=== PATIENT | male | born 1990 | race Caucasian/White ===

== ENCOUNTER 2021-04-17 23:14 | Observation (INO) ==
[2021-04-17] MEDS ORDERED: SODIUM CHLORIDE 0.9% 1,000 ML IV STA (23:36)
[2021-04-17 23:50] LABS: Basophils % 0.4 % (0.0-0.8); Eosinophils # 0.1 10*3/uL (0.0-0.87); Hematocrit 43.9 VOL% (42.0-52.0); Hemoglobin 14.9 GM/DL (14.0-18.0); Immature Granulocytes % 0.7 %; Immature Granulocytes Absolute 0.06 #; Lymphocytes # 3.2 10*3/uL (1.4-4.0); Lymphocytes % 40.1 % (21.2-54.2); Mean Corpuscular HGB Conc 33.9 GM/DL (32-36); Mean Corpuscular Volume 86.8 FL (87-102); Monocytes % 8.9 % (1.7-12.7); Neutrophils % 48.9 % (38.7-73.9); Platelet Count 206 T/CUMM (130-400); Red Blood Count 5.06 MC/CUMM (3.8-5.5); Red Cell Distribution Width 12.2 % (9.3-17.3); White Blood Count 8.1 T/CUMM (4-12)
[2021-04-18] LABS: INR 0.9; PT Patient Result 10.3 SECS (10.5-12.0)
[2021-04-18 00:19] LABS: Alanine Aminotransferase 66 U/L (16-61); Albumin 3.7 G/DL (3.4-5.0); Alkaline Phosphatase 88 U/L (45-117); Aspartate Amino Transferase 27 U/L (0-37); Bilirubin,Total < 0.39 MG/DL (0.20-1.00); Blood Urea Nitrogen 21 MG/DL (7-18); Calcium 8.7 MG/DL (8.5-10.1); Carbon Dioxide 25 MMOL/L (21-32); Estimated Glom Filtration Rate 172 ML/MIN; Glucose 107 MG/DL (74-106); Osmolality,Calculated 281.4 MOS/KG (273-304); Sodium 140 MMOL/L (136-145); Total Protein 7.4 G/DL (6.4-8.2)
[2021-04-18] MEDS ORDERED: DILTIAZEM 50 MG/10 ML VIAL IV STA (00:46)
[2021-04-18] MEDS ORDERED: SODIUM CHLORIDE 0.9% 1,000 ML IV STA (00:47)
[2021-04-18 01:03] LABS: Barbiturates Screen,Urine Negative (Negative); Benzodiazepines Screen,Urine Negative (Negative); Cannabinoid Screen,Urine Negative (Negative); Opiate Screen,Urine Negative (Negative); Phencyclidine Screen,Urine Negative (Negative)
[2021-04-18 01:19] LABS: Bilirubin,Urine Negative (Negative); Blood, Urine Negative (Negative); Glucose,Urine (UA) Negative (Negative); Ketones,Urine Negative (Negative); Mucus,Urine Occasional /LPF (Occasional); Nitrite,Urine Negative (Negative); Protein,Urine Negative; Urine Appearance CLEAR (Clear); Urine Color Yellow (Yellow); Urine Specific Gravity 1.023 (1.001-1.035); Urine Urobilinogen < 2.0 EU/DL (0.2-1.0)
[2021-04-18] MEDS ORDERED: DILTIAZEM 100 MG VIAL.ADD IV ONE (02:31)
[2021-04-18 02:41] LABS: Hypochromasia 1+; Platelet Estimate Normal
[2021-04-18] MEDS ORDERED: ONDANSETRON 4 MG/2 ML VIAL IV PRN (02:44)
[2021-04-18] MEDS ORDERED: GLUCAGON 1 MG VIAL IM PRN (02:44)
[2021-04-18] MEDS ORDERED: ACETAMINOPHEN 325 MG TABLET PO PRN (02:44)
[2021-04-18] MEDS ORDERED: MELATONIN 3 MG TABLET PO PRN (02:44)
[2021-04-18] MEDS ORDERED: hydrALAZINE 20 MG/1 ML VIAL IV PRN (02:44)
[2021-04-18] MEDS ORDERED: NICOTINE 21 MG/24 HR PATCH TRANSDERM PRN (02:44)
[2021-04-18] MEDS ORDERED: MORPHINE 2 MG/1 ML SYRINGE IV PRN (02:44)
[2021-04-18] MEDS ORDERED: DEXTROSE 50% 25 GM/50 ML VIAL IV PRN (02:44)
[2021-04-18] MEDS ORDERED: diphenhydrAMINE CAP 25 MG CAPSULE PO PRN (02:44)
[2021-04-18] MEDS ORDERED: guaiFENesin/DM ER 600-30 MG TABLET PO PRN (02:44)
[2021-04-18] MEDS ORDERED: SODIUM CHLORIDE 0.9% 1,000 ML IV SCH (03:00)
[2021-04-18] MEDS ORDERED: DILTIAZEM INJ 100 MG in SODIUM CHLORIDE 0.9% 100 ML IV SCH (03:00)
[2021-04-18] MEDS: ENOXAPARIN 100 MG/ML SYRINGE SUBCUT SCH ×2 (05:15→18:08)
[2021-04-18] MEDS ORDERED: AMIODARONE INJ 150 MG in DEXTROSE 5% 100 ML IV ONE (08:14)
[2021-04-18] MEDS ORDERED: AMIODARONE INJ 450 MG in DEXTROSE 5% 241 ML IV SCH (08:30)
[2021-04-18] MEDS ORDERED: ENOXAPARIN 40 MG/0.4 ML SYRINGE SUBCUT SCH (09:00)
[2021-04-18] MEDS: ASPIRIN EC 81 MG TABLET PO SCH (10:15)
[2021-04-18] MEDS: CETIRIZINE 10 MG TABLET PO SCH (10:15)
[2021-04-18] MEDS: ASCORBIC ACID 500 MG TABLET PO SCH ×2 (10:15→21:04)
[2021-04-18] MEDS: CHOLECALCIFEROL 1,000 UNIT TABLET PO SCH (10:15)
[2021-04-18] MEDS: ZINC GLUCONATE 50 MG TABLET PO SCH (10:15)
[2021-04-18] MEDS: FAMOTIDINE 20 MG TABLET PO SCH ×2 (10:15→21:04)
[2021-04-18] MEDS: DEXAMETHASONE 4 MG/1 ML VIAL IV SCH (10:16)
[2021-04-18] MEDS: AMIODARONE INJ 450 MG in DEXTROSE 5% 241 ML IV SCH (18:08)
[2021-04-19 04:55] LABS: Basophils % 0.2 % (0.0-0.8); Eosinophils % 0.1 % (0.00-10.9); Hematocrit 39.7 VOL% (42.0-52.0); Hemoglobin 13.3 GM/DL (14.0-18.0); Immature Granulocytes % 1.5 %; Immature Granulocytes Absolute 0.14 #; Lymphocytes % 21.6 % (21.2-54.2); Mean Corpuscular HGB Conc 33.5 GM/DL (32-36); Mean Platelet Volume 10.5 FL (9.6-12.0); Neutrophils % 67.6 % (38.7-73.9); Platelet Count 190 T/CUMM (130-400); Red Blood Count 4.51 MC/CUMM (3.8-5.5); Red Cell Distribution Width 12.2 % (9.3-17.3); White Blood Count 9.4 T/CUMM (4-12)
[2021-04-19 05:18] LABS: Calcium 8.6 MG/DL (8.5-10.1); Osmolality,Calculated 282.4 MOS/KG (273-304)
[2021-04-19 05:39] LABS: Band Neutrophils 2 % (0-10); Lymphocytes 19 % (20-55); Platelet Estimate Normal; Segmented Neutrophils 73 % (50-85); Total Cells Counted 100
[2021-04-19] MEDS: ENOXAPARIN 100 MG/ML SYRINGE SUBCUT SCH (05:56)
[2021-04-19] MEDS ORDERED: AMIODARONE 200 MG TABLET PO SCH (09:00)
[2021-04-19] MEDS ORDERED: AZITHROMYCIN 250 MG TABLET PO SCH (09:00)
[2021-04-19] MEDS: CHOLECALCIFEROL 1,000 UNIT TABLET PO SCH (09:44)
[2021-04-19] MEDS: ASPIRIN EC 81 MG TABLET PO SCH (09:45)
[2021-04-19] MEDS: DEXAMETHASONE 4 MG/1 ML VIAL IV SCH (09:45)
[2021-04-19] MEDS: ZINC GLUCONATE 50 MG TABLET PO SCH (09:45)
[2021-04-19] MEDS: FAMOTIDINE 20 MG TABLET PO SCH (09:46)
[2021-04-19] MEDS: CETIRIZINE 10 MG TABLET PO SCH (09:46)
[2021-04-19] MEDS: ASCORBIC ACID 500 MG TABLET PO SCH (09:46)
[2021-04-19] MEDS: AMIODARONE INJ 450 MG in DEXTROSE 5% 241 ML IV SCH (11:06)
[2021-04-19 12:05] VITALS: BP 141/92
[2021-04-20] MEDS ORDERED: AMIODARONE 200 MG TABLET PO SCH (09:00)
== END 2021-04-19 12:50 | disposition home or self-care (01) ==
LOC: N.ED 23:14 → N.EDINP 04-18 02:44 → INTOOBSV 04-18 02:44 → SUATTDRO 04-18 02:44 → N.2E 04-18 15:35
PROVIDERS: ADMIT Internal Medicine; ATTEND Phlebology